=== PATIENT | male | born 1985 | race Caucasian/White ===

== ENCOUNTER 2016-12-08 01:00 | Emergency (ER) | payer OTHER ==
[~2016-12-08] VITALS: Ht 175.3 cm; Wt 80.3 kg
[2016-12-08 02:31] VITALS: BP 128/80
== END 2016-12-08 04:34 | disposition home or self-care (01) ==
LOC: ED 01:00
DX: J45.909 Unspecified asthma, uncomplicated (principal)
CPT/HCPCS: J2930; J7613; J7644